=== PATIENT | female | born 1955 | race Caucasian/White ===

== ENCOUNTER 2017-07-04 05:55 | Day surgery (SDC) | payer MEDICARE, OTHER ==
[~2017-07-04] VITALS: Ht 152.4 cm; Wt 72.1 kg
[~2017-07-04 05:55] MED LIST: AMLODIPINE BESYL5 MG PO; CALCIUM + VITA1 EACH PO; DOK100 MG PO; KRISTALOSE10 GM PO; LAMICTAL100 MG PO; LIPITOR20 MG PO; RANITIDINE HCL300 MG PO; RISPERDAL4 MG PO; VITAMIN D32000 UNI1 PO
--- NOTE | 2017-07-04 08:05 | NUR ---
07/04/17 0804 Keri Pizarro 0801 PATIENT ARRIVES SLEEPING. AWAKENS WITH VERBAL STIMULI, DENIES PAIN THEN BACK TO SLEEP. RESP EVEN AND UNLABORED. ARRIVES ON NC AT 3 LITERS, TURNED OFF. PATIENT SATS 91-94 % ON ROOM AIR.
--- NOTE | 2017-07-04 09:04 | OR ---
[facility] [address], [place] [address] Signed DATE OF OPERATION: 07/04/2017 SURGEON: Mirza Arredondo MD PREOPERATIVE DIAGNOSIS: Personal history of colonic polyps 2012. POSTOPERATIVE DIAGNOSIS: 3 mm rectal polyps x3. PROCEDURE: Colonoscopy with hot biopsy. ESTIMATED BLOOD LOSS: None. INDICATIONS: Eitan is a 62-year-old female, who was asked to see me for a followup colonoscopy. She had an adenomatous polyp removed in 2012. There is no family history of colon cancer or polyps. She has lost quite a bit of weight and said she is no longer diabetic. She says she has been feeling good. She always complains about the consistency of her stool. Otherwise, she says she is doing well. In the office, I gave Eitan a pamphlet on colonoscopy and we looked at that together along with the risks including, but not limited to gas bloating, crampy abdominal pain, bleeding, perforation, requiring surgery, and missed diagnosis. We also discussed the need for IV conscious sedation. She had expressed understanding and wished to proceed. PROCEDURE NOTE: Eitan was taken into our endoscopy suite and placed in the left lateral decubitus position. She was given 125 mcg of fentanyl and 6 mg of Versed. A digital rectal exam was performed and this was unremarkable. The adult colonoscope was then introduced and advanced all around into the cecum under direct visualization of the camera without difficulty. She had a couple of areas of thick almost mucousy brown liquid stool, but most of that was suctioned out. The scope was then slowly withdrawn. The colon was unremarkable. In the rectum, she had just a few tiny hyperplastic-appearing polyps, which were removed with the hot biopsy forceps. Upon retroflexion of the scope, we did not see any pathology above the anal canal. After this, the gas was suctioned out and colonoscope removed. Eitan tolerated the procedure quite well. RECOMMENDATIONS: Electronically Signed By: MIRZA ARREDONDO MD 07/04/17 0904 PATIENT NAME: EITAN MURO OPERATIVE REPORT DATE OF : 59 REPORT #: [id number] PHYSICIAN: MIRZA ARREDONDO MD PCP: RAMIRO CLINTON DO REPORT IS CONFIDENTIAL AND NOT TO BE RELEASED WITHOUT AUTHORIZATION [address] [address] Signed I will see Eitan back in my office in 7 to 14 days to review her results. I suspect she will stay on the 5-year rotation. Mirza Arredondo MD ALB/MODL /[id number] cc: MD Ramiro Lopez, MD Ramiro Powell DO Copies: BHARATHI MCCARTNEY MD, RUSSELL NP BOWER, ANDREW L MD KARGAR, ARIAN DO ~ Electronically Signed By: MIRZA ARREDONDO MD 07/04/17 0904 PATIENT NAME: EITAN MURO OPERATIVE REPORT DATE OF : 59 REPORT #: [id number] PHYSICIAN: MIRZA ARREDONDO MD PCP: RAMIRO CLINTON DO REPORT IS CONFIDENTIAL AND NOT TO BE RELEASED WITHOUT AUTHORIZATION
== END 2017-07-04 08:40 | disposition home or self-care (01) ==
LOC: OPS 05:55 → DS 05:55 → OPS 06:45
PROVIDERS: Colon & Rectal Surgery
PROC: 0DBP8ZZ Excision of Rectum, Via Natural or Artificial Opening Endoscopic (ICD-10-PCS; principal; 2017-07-04 06:45)
DX: Z12.11 Encounter for screening for malignant neoplasm of colon (principal); K62.1 Rectal polyp; I10 Essential (primary) hypertension; K21.9 Gastro-esophageal reflux disease without esophagitis; E78.00 Pure hypercholesterolemia, unspecified; E11.9 Type 2 diabetes mellitus without complications; F31.9 Bipolar disorder, unspecified; F29 Unspecified psychosis not due to a substance or known physiological condition; F17.210 Nicotine dependence, cigarettes, uncomplicated; Z88.8 Allergy status to other drugs, medicaments and biological substances; Z86.010 Personal history of colon polyps; Z79.899 Other long term (current) drug therapy; Z98.890 Other specified postprocedural states; Z88.6 Allergy status to analgesic agent
CPT/HCPCS: 88305; 99153; G0500; J2250; J3010; J7120

== ENCOUNTER 2020-09-24 08:20 | Emergency (ER) | payer MEDICARE, OTHER ==
[~2020-09-24] VITALS: Ht 152.4 cm; Wt 68.6 kg
[2020-09-24] MEDS ORDERED: LATUDA60 MG PO (08:42)
== END 2020-09-24 08:58 | disposition home or self-care (01) ==
LOC: ED 08:20
DX: H00.15 Chalazion left lower eyelid (principal); Z88.6 Allergy status to analgesic agent; Z79.899 Other long term (current) drug therapy
CPT/HCPCS: 99283